=== PATIENT | male | born 2005 | race Caucasian/White ===

== ENCOUNTER 2023-09-15 14:53 | Emergency (ER) | payer SELFPAY ==
[2023-09-15] MEDS: Sodium Chloride 0.9% 1,000 ML IV ONE ×2 (15:38→16:45)
[2023-09-15 16:00] LABS: BASE EXCESS ARTERIAL -24.4 (-2-2.0); BICARBONATE,ARTERIAL 3.7 meq/L (22.0-26.0); O2 SATURATION ARTERIAL 98.1 % (96.0-97.0)
[2023-09-15 16:02] LABS: PCO2 ARTERIAL 11.4 mmHg (35.0-45.0)
[2023-09-15] MEDS: Sodium Chloride 0.9% 10 ML Syringe FLUSH PRN (16:07)
[2023-09-15 16:51] LABS: BASOPHILS PERCENT AUTO 0.2 % (0.0-1.0); EOSINOPHILS PERCENT AUTO 0.1 % (0.0-6.0); HEMATOCRIT 13.9 % (42.0-52.0); IMMATURE GRAN ABSOLUTE AUTO 0.35 K/mm3 (0.00-0.05); IMMATURE GRAN PERCENT AUTO 2.4 % (0.0-0.4); LYMPHOCYTES ABSOLUTE AUTO 1.1 K/mm3 (1.0-4.8); LYMPHOCYTES PERCENT AUTO 7.6 % (24.0-44.0); MEAN CORPUSCULAR HEMOGLOBIN 26.8 pg (28.0-32.0); MEAN CORPUSCULAR HGB CONC 30.2 g/dl (32.0-36.0); MEAN CORPUSCULAR VOLUME 88.5 fl (83.0-99.0); MEAN PLATELET VOLUME 9.3 fl (9.4-12.4); MONOCYTES ABSOLUTE AUTO 0.8 K/mm3 (0.0-0.8); MONOCYTES PERCENT AUTO 5.3 % (0.0-8.0); NEUTROPHILS ABSOLUTE AUTO 12.1 K/mm3 (1.8-7.7); NEUTROPHILS PERCENT AUTO 84.4 % (41.0-71.0); NRBC ABSOLUTE 0.02 (0.00-0.02); NRBC PERCENT 0.1 % (0.0-0.2); PLATELET COUNT,PLT 195 K/mm3 (150-400); RED BLOOD CELL COUNT 1.57 M/mm3 (4.52-5.90)
[2023-09-15 16:52] LABS: BASE EXCESS ARTERIAL -24.9 (-2-2.0); BICARBONATE,ARTERIAL 3.5 meq/L (22.0-26.0); O2 SATURATION ARTERIAL 83.5 % (96.0-97.0)
[2023-09-15 16:53] LABS: PCO2 ARTERIAL 12.1 mmHg (35.0-45.0)
[2023-09-15 17:02] LABS: HEMOGLOBIN 4.2 gm/dl (14.0-18.0)
[2023-09-15 17:19] LABS: BILIRUBIN TOTAL 0.4 mg/dL (0.2-1.0); CHLORIDE,CL 110 mEq/L (98-107); GLUCOSE RANDOM 104 mg/dL (70-99); MAGNESIUM 2.1 mg/dL (1.8-2.4); SODIUM,NA 147 mEq/L (136-145)
[2023-09-15 17:27] LABS: A/G RATIO 0.8 (1-2); ALANINE AMINOTRANSFERASE,ALT 18 U/L (16-63); ALBUMIN 3.1 g/dl (3.4-5.0); ALKALINE PHOSPHATASE 406 U/L (46-116); ASPARTATE AMNIOTRANSFERASE,AST 16 U/L (15-37); C-REACTIVE PROTEIN 1.84 mg/dL (<0.30); CALCIUM 7.5 mg/dL (8.5-10.1); LIPASE 62 U/L (16-77); POTASSIUM,K 4.9 mEq/L (3.5-5.1); PROTEIN TOTAL,TP 6.8 g/dl (6.4-8.2); TROPONIN I HIGH SENSITIVITY 49 pg/mL (<=76)
[2023-09-15 17:33] LABS: INR 1.17; PROTHROMBIN TIME 12.4 SECONDS (9.7-12.0); PTT,PARTIAL THROMBOPLSTIN TIME 26.7 SECONDS (21.7-31.4)
[2023-09-15 17:45] LABS: ANION GAP 37.9 (5-15); BLOOD UREA NITROGEN,BUN 240 mg/dL (7-18); BUN/CREATININE RATIO 10.8 (14-18); CARBON DIOXIDE,CO2 4 mEq/L (21-32); CREATININE 22.2 mg/dL (0.7-1.3); EST CRCL DRUG DOSING (CG) 3.75 mL/min
[2023-09-15] MEDS: Iopamidol 612 MG/ML 100 ML Bottle IVPUSH ONE (17:46)
[2023-09-15] MEDS: Sodium Chloride 0.9% 10 ML Syringe FLUSH ONE (17:46)
[2023-09-15] MEDS: Lactated Ringers 1,000 ML IV ONE (17:55)
[2023-09-15] MEDS: Succinylcholine 200 MG/10 ML MDV IVPUSH ONE (17:56)
[2023-09-15] MEDS: Etomidate 2 MG/ML 20 ML SDV IVPUSH ONE (17:56)
[2023-09-15] MEDS: propofoL 100 ML IV SCH (18:10)
[2023-09-15] MEDS: Rocuronium 50 MG/5 ML Vial IVPUSH ONE (18:25)
[2023-09-15] MEDS: Midazolam 1 MG/ML 2 ML SDV IVPUSH ONE (18:36)
[2023-09-15] MEDS: Midazolam 1 MG/ML 5 ML SDV IVPUSH ONE (18:36)
[2023-09-15] MEDS: fentaNYL 2500 MCG/50 ML SDV ONE (18:39)
[2023-09-15] MEDS: Midazolam 1 MG/ML 2 ML SDV ONE ×2 (18:40)
[2023-09-15 18:42] LABS: OSMOLALITY,SERUM 390 mosm/kg (280-300)
[2023-09-15] MEDS: levETIRAcetam 1,000 MG in Sodium Chloride 0.9% 100 ML IV ONE (18:46)
[2023-09-15] MEDS: niCARdipine HCl 25 MG in Sodium Chloride 0.9% 250 ML IV SCH (18:50)
[2023-09-15 19:06] LABS: CORONAVIRUS COVID-19 NAA NEGATIVE (NEGATIVE); INFLUENZA A NAA NEGATIVE (NEGATIVE); RESPIRATORY SYNCYTIAL VIR NAA NEGATIVE (NEGATIVE)
[2023-09-15] MEDS: propofoL 100 ML ONE (20:09)
== END 2023-09-15 19:21 ==
LOC: JD.ED 14:53
DX: I60.9 Nontraumatic subarachnoid hemorrhage, unspecified (principal); J96.00 Acute respiratory failure, unspecified whether with hypoxia or hypercapnia; D64.89 Other specified anemias; N17.9 Acute kidney failure, unspecified; Q61.3 Polycystic kidney, unspecified
CPT/HCPCS: 0241U; 31500; 36415; 36430; 36556; 36600; 51702; 70450; 71045; 74177; 80053; 80307; 82803; 82947; 83605; 83690; 83735; 83930; 84484; 85025; 85610; 85730; 86140; 86308; 86850; 86900; 86901; 86922; 93005; 96361; 96365; 96375; 99291; C1751; J0330; J1953; J2250; J2704; J3490; J7030; J7050; J7120; P9016; Q9967; 93010